=== PATIENT | male | born 1965 | race Caucasian/White ===

== ENCOUNTER 2017-01-01 05:10 | Emergency (ER) | payer OTHER ==
[~2017-01-01] VITALS: Ht 177.8 cm; Wt 74.8 kg
[2017-01-01 06:19] VITALS: BP 147/80
== END 2017-01-01 06:19 | disposition other institution (70) ==
LOC: ED 05:10
DX: G89.29 Other chronic pain (principal); M79.641 Pain in right hand
CPT/HCPCS: Q0162

== ENCOUNTER 2017-01-01 05:10 | Emergency (ER) | payer OTHER | END 2017-01-01 06:19 | disposition other institution (70) | LOC: ED 05:10 | DX: Z02.89 Encounter for other administrative examinations (principal) ==